=== PATIENT | male | born 1985 | race Two or more races ===

== ENCOUNTER 2022-04-03 17:19 | Outpatient (CLI) | payer OTHER ==
--- NOTE | 2022-04-05 09:06 | MRI Report ---
PROCEDURE: KNEE WO - RT INDICATIONS: RIGHT KNEE PAIN TECHNIQUE: Noncontrast sagittal PD fast spin echo and T2 fast spin echo with fat saturation, sagittal 3-D gradie nt sequence with fat saturation; coronal T1 spin echo and PD fast spin echo with fat saturation, and axial PD fast spin echo with fat saturation through the knee. COMPARISON: None. FINDINGS: Image quality: Mild motion degradation Menisci Medial: Intact. Meniscocapusular junction maintained. Lateral: Intact. Meniscopopliteal fascicles maintained. Cruciate ligaments: Intact Medial structures MCL: Intact Pes anserine tendons: Intact Semimembranosus: Intact Lateral structures LCL: Intact Biceps femoris: Intact IT band: Intact Popliteus tendon: Intact Anterior structures Extensor mechanism: Intact Fat pads: No pathologic edema Medial retinaculum: Intact. Trochlea: Lateral tilt of the patella. TT TG distance is borderline at about 18 mm. Bone and joint Bones: No fracture, dislocation, or suspicious edema Cartilage: No significant chondromalacia of the medial and lateral compartments. There is mild to mod erate surface fraying of the patellar cartilage without underlying marrow edema Joint space: Physiologic fluid. No measureable loose body. Adams's cyst: None Soft tissues: No significant vascular or other soft tissue pathology. IMPRESSION: Mild lateral tilt of the patella and borderline elongated TT TG distance is sometimes seen with maltr acking. 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 Otherwise, no significant internal derangement of the knee. Reviewed by: Andrea Clemente MD on 04/05/2022 9:04 AM PDT Approved by: Andrea Clemente MD on 04/05/2022 9:04 AM PDT Station ID: [id number]
== END 2022-04-03 17:20 | disposition home or self-care (01) ==
LOC: DI 17:19
DX: M25.561 Pain in right knee (principal); M22.41 Chondromalacia patellae, right knee